=== PATIENT | female | born 2000 | race African-American/Black ===

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

== ENCOUNTER 2024-07-01 15:01 | Emergency (ER) | payer MEDICAID ==
[~2024-07-01] VITALS: Ht 160 cm; Wt 75.0 kg
[2024-07-01 15:13] VITALS: O2SAT 99
[2024-07-01] MEDS ORDERED: ACET-2708 MT (18:54)
[2024-07-01] MEDS ORDERED: IBUP-1523 MT (18:54)
[2024-07-01] MEDS: HYDROCODONE/ACETAMINOPHEN 5/325MG TABLET PO ONE (18:58)
[2024-07-01] MEDS: LIDOCAINE HCL 1% 20ML VIAL INFIL ONE (18:59)
[2024-07-01 20:05] VITALS: BP 130/76; PULSE 101; RESP 20; TEMP 98
== END 2024-07-01 20:34 | disposition home or self-care (01) ==
LOC: ER 15:22
DX: S00.83XA Contusion of other part of head, initial encounter (principal); S70.02XA Contusion of left hip, initial encounter; V49.9XXA Car occupant (driver) (passenger) injured in unspecified traffic accident, initial encounter; Y93.89 Activity, other specified; Y92.89 Other specified places as the place of occurrence of the external cause; Y99.8 Other external cause status
CPT/HCPCS: 99284; 70450; 71045; 72040; 70486; J3490